=== PATIENT | male | born 1980 | race Caucasian/White ===

== ENCOUNTER → 2020-04-10 16:53 | Outpatient (CLI) | payer OTHER, MEDICAID, SELFPAY ==
--- NOTE | 2020-04-10 16:55 | DI.RAD.S_ITS ---
PROCEDURE: XR SHOULDER RT MIN 2V INDICATIONS: Neck pain TECHNIQUE: 3 views of the shoulder were acquired. COMPARISON: None. FINDINGS: Bones: Joint spaces are maintained with no significant degenerative changes. No fractures or dislocations. No suspicious bony lesions. Visualized ribs appear intact. Soft tissues: No suspicious soft tissue calcifications. IMPRESSION: No acute finding. No significant degenerative changes. MRI may be helpful for further evaluation. Dictated by: Bhanu Cadet M.D. on 04/10/2020 at 18:18 Approved by: Bhanu Cadet M.D. on 04/10/2020 at 18:18
--- NOTE | 2020-04-10 16:55 | DI.RAD.S_ITS ---
PROCEDURE: XR CERVICAL SPINE 2V OR 3V INDICATIONS: Neck pain, no trauma TECHNIQUE: 4 view(s) of the cervical spine were acquired. COMPARISON: None. FINDINGS: Bones: Straightening of the usual cervical lordosis. Vertebral body heights maintained. Disc height loss with degenerative endplate changes from C3-C4 through C6-C7, along with associated uncovertebral spurring. Soft tissues: No prevertebral soft tissue swelling. IMPRESSION: Degenerative changes in the mid lower cervical spine. Dictated by: Bhanu Cadet M.D. on 04/10/2020 at 18:17 Approved by: Bhanu Cadet M.D. on 04/10/2020 at 18:17
== END ==
PROVIDERS: Referring Provider Registered Nurse; Visit Provider Registered Nurse
DX: M54.2 Cervicalgia (principal); M25.511 Pain in right shoulder; M47.812 Spondylosis without myelopathy or radiculopathy, cervical region
CPT/HCPCS: 72040; 73030

== ENCOUNTER → 2024-01-10 07:42 | Outpatient (CLI) | payer OTHER, SELFPAY ==
--- NOTE | 2024-01-10 07:44 | DI.US.S_ITS ---
PROCEDURE: US ABDOMEN LIMITED INDICATIONS: ABNORMAL RESULTS OF LFTS TECHNIQUE: Real-time focused scanning was performed of the abdomen, with image documentation. COMPARISON: None. FINDINGS: The liver is normal size at 12.6 cm in length. The parenchyma is diffusely hyperechoic and mildly coarse in echotexture. No dominant mass. There is a 0.7 cm echogenic, but nonshadowing oval focus adherent to the posterior gallbladder wall. The wall is normal thickness at 2 mm and there is no pericholecystic fluid or sonographic Hamm sign. There is no biliary dilatation. The common duct is 3 mm. The visible portion the pancreas and right kidney appear grossly normal. No free fluid in the right upper quadrant. IMPRESSION: 0.7 cm gallbladder wall polyp, adherent stone, or adherent sludge. No biliary dilatation. Coarse and mildly hyperechoic hepatic parenchyma may indicate steatosis or other intrinsic liver disease. Dictated by: Brigitte Feliz M.D. on 01/10/2024 at 9:06 Approved by: Brigitte Feliz M.D. on 01/10/2024 at 9:08
== END ==
PROVIDERS: Referring Provider Nurse Practitioner Family; Visit Provider Nurse Practitioner Family
DX: R94.5 Abnormal results of liver function studies (principal); K82.8 Other specified diseases of gallbladder
CPT/HCPCS: 76705

== ENCOUNTER → 2024-05-21 12:02 | Outpatient (CLI) | payer OTHER, SELFPAY ==
--- NOTE | 2024-05-21 12:03 | DI.US.S_ITS ---
PROCEDURE: US ABDOMEN LIMITED INDICATIONS: GALLBLADDER POLYP TECHNIQUE: Real-time scanning was performed of the abdominal and retroperitoneal organs, with image documentation. COMPARISON: [facility], , US ABDOMEN LIMITED, 01/10/2024, 8:01. FINDINGS: Liver: Liver is normal in size and homogeneous in echotexture. 4 x 5 x 4 mm simple cyst in the left inferior hepatic lobe. Hyperechoic liver parenchyma. Focal fatty sparing around the fani hepatis. Gallbladder: No gallstones. No wall thickening. No pericholecystic edema. Negative sonographic Hamm's sign. Re-identified 4 x 3 x 6 mm gallbladder polyp without a vascular stalk. Biliary ducts: Intrahepatic bile ducts are non-dilated. Extrahepatic bile duct caliber measures 6 mm. Normal is 6-7 mm or less in diameter, or 10 mm or less post-cholecystectomy. Pancreas: Not well identified due to overlying bowel gas. Miscellaneous: No free abdominal fluid. IMPRESSION: 1. Benign-appearing 6 mm gallbladder polyp. No further follow-up necessary. 2. Hepatic steatosis versus underlying hepatocellular disease. Dictated by: Jorge Nielson M.D. on 05/21/2024 at 14:50 Approved by: Jorge Nielson M.D. on 05/21/2024 at 14:55
== END ==
PROVIDERS: Referring Provider Nurse Practitioner Family; Visit Provider Nurse Practitioner Family
DX: Z01.89 Encounter for other specified special examinations (principal); K82.4 Cholesterolosis of gallbladder; K76.89 Other specified diseases of liver
CPT/HCPCS: 76705